=== PATIENT | male | born 1985 | race Caucasian/White ===

== ENCOUNTER 2020-02-11 10:22 | Emergency (ER) | payer BC ==
[~2020-02-11] VITALS: Ht 167.6 cm; Wt 61.0 kg
[2020-02-11 10:47] VITALS: BP 112/74
[2020-02-11] MEDS ORDERED: PRED10TA PO (11:33)
[2020-02-11] MEDS ORDERED: predniSONE 20 mg tablet PO ONE ×3 (11:35→11:40)
[2020-02-11] MEDS ORDERED: prednisone 10mg tablet PO ONE (11:40)
== END 2020-02-11 11:51 | disposition home or self-care (01) ==
LOC: ER 10:22
DX: L23.7 Allergic contact dermatitis due to plants, except food (principal); Z79.899 Other long term (current) drug therapy
CPT/HCPCS: 99283; J7512

== ENCOUNTER 2020-05-23 09:01 | Emergency (ER) | payer BC ==
[~2020-05-23] VITALS: Ht 165.1 cm; Wt 72.7 kg
[~2020-05-23 09:01] MED LIST: PRED10TA PO
[2020-05-23 09:19] VITALS: BP 103/65
== END 2020-05-23 10:35 | disposition home or self-care (01) ==
LOC: ER 09:02
DX: Z03.818 Encounter for observation for suspected exposure to other biological agents ruled out (principal); Z79.899 Other long term (current) drug therapy
CPT/HCPCS: 36415; 99282

== ENCOUNTER 2023-01-03 04:15 | Inpatient (IN) | payer BC ==
[~2023-01-03] VITALS: Ht 165.1 cm; Wt 77.3 kg
[2023-01-03] MEDS ORDERED: ondansetron/PF 4mg/2ml inj IV ONE (04:25)
[2023-01-03] MEDS ORDERED: normal saline 1000ML IV soln IVB ONE ×2 (04:25)
[2023-01-03] MEDS ORDERED: ketorolac trometh. 30mg/ml inj. IV ONE (04:30)
[2023-01-03] MEDS ORDERED: dicyclomine 10mg/ml 2ml ampule IM ONE (04:30)
[2023-01-03] MEDS ORDERED: famotidine/PF 10 mg/ml inj IV ONE (04:30)
[2023-01-03 04:38] LABS: BASOPHILS # (AUTO) 0.1 X10'3 (0-0.2); EOSINOPHILS % (AUTO) 0.3 % (0-6); HEMATOCRIT 50.9 % (42.0-52.0); HEMOGLOBIN 17.5 g/dl (14.0-17.9); LYMPHOCYTES % (AUTO) 15.1 % (21-51); MEAN CORPUSCULAR HEMOGLOBIN 31.7 PG (27.0-31.0); MEAN CORPUSCULAR HGB CONC 34.3 g/dL (33.0-36.5); MEAN CORPUSCULAR VOLUME 92.5 FL (78-98); MEAN PLATELET VOLUME 8.1 FL (7.4-10.4); MONOCYTES # (AUTO) 1.2 X10'3 (0-0.9); MONOCYTES % (AUTO) 9.2 % (2-12); NEUTROPHILS # (AUTO) 9.6 X10'3 (1.8-7.7); NEUTROPHILS % (AUTO) 74.4 % (42-75); PLATELET COUNT 257 X10'3 (140-440); RED CELL DISTRIBUTION WIDTH 13.2 % (11.5-14.5)
[2023-01-03 04:54] LABS: ALANINE AMINOTRANSFERASE 32 U/L (12-78); ALBUMIN 4.8 G/DL (3.4-5.0); ALBUMIN/GLOBULIN RATIO 1.1 (1.1-1.5); ALKALINE PHOSPHATASE 58 IU/L (46-116); ANION GAP 18 (8-16); ASPARTATE AMINO TRANSFERASE 30 U/L (10-37); BILIRUBIN,TOTAL 1.8 MG/DL (0.1-1.0); BLOOD UREA NITROGEN 24 MG/DL (7-18); BUN/CREATININE RATIO 11.5 (10.0-20.0); CALCIUM 9.2 MG/DL (8.5-10.1); CHLORIDE 96 MMOL/L (99-107); CREATININE 2.09 MG/DL (0.60-1.10); GLUCOSE 152 MG/DL (70-104); LIPASE 60 U/L (73-393); POTASSIUM 3.4 MMOL/L (3.5-5.1); SODIUM 136 MMOL/L (135-145); TOTAL CARBON DIOXIDE 22.4 MMOL/L (24-32); eGFR 36 ML/MIN
--- NOTE | 2023-01-03 05:18 | NUR ---
med rec complete - pt states he does not take any at home medications.
--- NOTE | 2023-01-03 07:01 | NUR ---
ATTEMPTED TO INSERT THE NG TUBE AFTER EXPLAINING THE PROCEDURE AND PURPOSE TO THE PT ,PT STATED HE COULDN'T HANDLE IT ,"I DON'T THINK IT CAN PASS THROUGH MY NOSE".NOTIFIED DR VERDIN , PER MD NIETO FOR THE HOSPITALIST .ALSO INFORMED DR VERDIN TO DISCUSS THE REPORT OF CT .
[2023-01-03] MEDS ORDERED: LIDOcaine Viscous 15ml cup MM PRN (07:15)
--- NOTE | 2023-01-03 07:16 | NUR ---
PLACED THE NG TUBE TUBE WHILE MD AT BEDSIDE. VERBAL ORDER RECEVIED FROM MD TO GIVE VISCOUS LIDOCAINE 15 ML PO FOR SORE THROAT .
[2023-01-03] MEDS ORDERED: magnesium 4gm in 100ml NS 100 ML IV PRN (07:30)
[2023-01-03] MEDS ORDERED: potassium Cl 20 mEq SR tablet PO PRN ×2 (07:30)
[2023-01-03] MEDS ORDERED: acetaminophen 325mg tablet PO PRN ×2 (07:30)
[2023-01-03] MEDS ORDERED: HYDROcodone/acetaminophen 5mg/325mg tablet PO PRN (07:30)
[2023-01-03] MEDS ORDERED: HYDROcodone/acetaminophen 10/325mg tab PO PRN (07:30)
[2023-01-03] MEDS ORDERED: ondansetron/PF 4mg/2ml inj IV PRN (07:30)
[2023-01-03] MEDS ORDERED: magnesium 2GM in 50ml NS 50 ML IV PRN (07:30)
[2023-01-03] MEDS ORDERED: morphine 2 MG/ML inj. syringe IV PRN ×2 (07:30)
[2023-01-03] MEDS ORDERED: magnesium hydroxide 30ml (MOM) UD suspension PO PRN (07:30)
[2023-01-03] MEDS ORDERED: magnesium Cl slow-release 64mg tablet PO PRN (07:30)
[2023-01-03] MEDS ORDERED: potassium Cl 40MEQ/1/2NS 520ml 520 ML IV PRN (07:30)
[2023-01-03] MEDS ORDERED: CefTRIAXone 2gm/D5W 50ml BAG 50 ML IV ONE (07:35)
[2023-01-03] MEDS: heparin, porcine 5000 units/ml vial SQ SCH ×3 (08:00→19:35)
[2023-01-03] MEDS ORDERED: normal saline 1000ml 1,000 ML IV ONE (08:05)
[2023-01-03] MEDS ORDERED: LORazepam 2 mg/ml vial IV ONE ×2 (08:05→08:35)
[2023-01-03] MEDS: normal saline 1000ml 1,000 ML IV SCH ×3 (08:34→23:30)
--- NOTE | 2023-01-03 08:40 | NUR ---
PT RECEVIVED TOTAL OF 2MG OF ATIVIAN FOR ANXIETY ,PT WAS MORE RELAXED FOR THE PROCEDURE .
--- NOTE | 2023-01-03 08:57 | NUR ---
ADAVANCE THE NG TUBE 5 CM MORE PER MD ORDERS.
--- NOTE | 2023-01-03 09:36 | NUR ---
DR ORTIZ AT BEDSIDE ,MD CHECKED AND CONFIRMED THE PLACEMENT OF G TUBE WITH 50 CC SYRINGE AIR .EXPLAIN THE POC ALL QUES ANSWERED BY THE MD ,ORDER TO START CLEAR LIQUID DIET AFTER 6 HR IF THERE IS NO GI CONTENT .
--- NOTE | 2023-01-03 10:20 | NUR ---
ATTEMPT TO CALL REPORT ,PRIMARY RN JUD IS BUSY WITH OTHER PT .
[2023-01-03] MEDS ORDERED: NO HOME MEDS (10:39)
[2023-01-03 11:06] VITALS: BP 116/69
--- NOTE | 2023-01-03 17:24 | NUR ---
NG TUBE REMOVED PER MD ORDER
[2023-01-03 18:00] VITALS: BP 109/60
--- NOTE | 2023-01-03 18:00 | NUR ---
Patient in room [facility]TH[facility] 4009. I have received report from CYNTHIA Mota and had the opportunity to ask questions and assume patient care.
[2023-01-03 18:20] LABS: ALANINE AMINOTRANSFERASE 30 U/L (12-78); ALBUMIN 3.8 G/DL (3.4-5.0); ALBUMIN/GLOBULIN RATIO 1.1 (1.1-1.5); ALKALINE PHOSPHATASE 45 IU/L (46-116); ANION GAP 11 (8-16); ASPARTATE AMINO TRANSFERASE 34 U/L (10-37); BLOOD UREA NITROGEN 17 MG/DL (7-18); BUN/CREATININE RATIO 14.4 (10.0-20.0); CALCIUM 7.7 MG/DL (8.5-10.1); CHLORIDE 108 MMOL/L (99-107); CREATININE 1.18 MG/DL (0.60-1.10); GLUCOSE 96 MG/DL (70-104); POTASSIUM 3.3 MMOL/L (3.5-5.1); SODIUM 141 MMOL/L (135-145); TOTAL CARBON DIOXIDE 22.5 MMOL/L (24-32); TOTAL PROTEIN 7.2 G/DL (6.4-8.2); eGFR 70 ML/MIN
--- NOTE | 2023-01-03 18:35 | NUR ---
Problems reprioritized. Patient report given, questions answered & plan of care reviewed with HANNAH MARIE.
[2023-01-03 18:56] LABS: CLARITY,URINE CLEAR (Clear); COLOR,URINE YELLOW (Yellow); GLUCOSE, URINE NEGATIVE (Neg); KETONES,URINE 15 mg/dl (Neg); LEUKOCYTE ESTERASE ,URINE NEGATIVE (Neg); NITRITES, URINE NEGATIVE (Neg); OCCULT BLOOD,URINE TRACE-INTACT (Neg); PH,URINE 5.5 (4.8-8.0); PROTEIN,URINE NEGATIVE (Neg); UROBILINOGEN,URINE 0.2 E.U/dL (0.2-1.0)
[2023-01-03 18:58] LABS: UA COLLECTION TYPE CLN CATCH MIDSTREAM
[2023-01-03 19:16] LABS: BACTERIA,URINE NONE SEEN /HPF (Neg); MUCUS STRANDS FEW /LPF (Neg); RBC,URINE 0-2 /HPF (0-2); SQUAMOUS EPITHELIAL CELL,UR FEW /LPF (FEW); WBC,URINE 0-4 /HPF (0-4)
--- NOTE | 2023-01-03 21:10 | NUR ---
call to md to request ativan per pt request.
[2023-01-03] MEDS ORDERED: LORazepam 1 MG tablet PO PRN (21:15)
[2023-01-03 21:42] VITALS: BP 132/66
[2023-01-04 05:53] LABS: BASOPHILS % (AUTO) 0.7 % (0-1); EOSINOPHILS # (AUTO) 0.2 X10'3 (0-0.9); EOSINOPHILS % (AUTO) 2.9 % (0-6); HEMOGLOBIN 13.3 g/dl (14.0-17.9); LYMPHOCYTES # (AUTO) 1.5 X10'3 (1.1-4.8); MEAN CORPUSCULAR HEMOGLOBIN 31.2 PG (27.0-31.0); MEAN CORPUSCULAR HGB CONC 33.2 g/dL (33.0-36.5); MEAN CORPUSCULAR VOLUME 94.2 FL (78-98); MEAN PLATELET VOLUME 8.4 FL (7.4-10.4); MONOCYTES % (AUTO) 16.5 % (2-12); NEUTROPHILS # (AUTO) 3.2 X10'3 (1.8-7.7); NEUTROPHILS % (AUTO) 53.9 % (42-75); PLATELET COUNT 160 X10'3 (140-440); RED BLOOD COUNT 4.25 X10'6 (4.70-6.10); RED CELL DISTRIBUTION WIDTH 13.1 % (11.5-14.5); WHITE BLOOD COUNT 5.9 X10'3 (4.5-11.0)
[2023-01-04 06:00] VITALS: BP 130/68
[2023-01-04 06:27] LABS: ALANINE AMINOTRANSFERASE 22 U/L (12-78); ALKALINE PHOSPHATASE 35 IU/L (46-116); ANION GAP 10 (8-16); ASPARTATE AMINO TRANSFERASE 27 U/L (10-37); BILIRUBIN,TOTAL 0.8 MG/DL (0.1-1.0); BLOOD UREA NITROGEN 14 MG/DL (7-18); BUN/CREATININE RATIO 13.3 (10.0-20.0); CALCIUM 7.6 MG/DL (8.5-10.1); CHLORIDE 111 MMOL/L (99-107); CREATININE 1.05 MG/DL (0.60-1.10); GLUCOSE 74 MG/DL (70-104); POTASSIUM 3.6 MMOL/L (3.5-5.1); SODIUM 142 MMOL/L (135-145); TOTAL CARBON DIOXIDE 21.5 MMOL/L (24-32); TOTAL PROTEIN 6.1 G/DL (6.4-8.2); eGFR 80 ML/MIN
--- NOTE | 2023-01-04 06:32 | NUR ---
Problems reprioritized. Patient report given, questions answered & plan of care reviewed with CYNTHIA Dykes.
--- NOTE | 2023-01-04 06:37 | NUR ---
Patient in room ORTHO 4009. I have received report from Zo and had the opportunity to ask questions and assume patient care.
[2023-01-04] MEDS: heparin, porcine 5000 units/ml vial SQ SCH (08:00)
[2023-01-04] MEDS: normal saline 1000ml 1,000 ML IV SCH (08:31)
[2023-01-04] MEDS ORDERED: SENN1TAB82 PO (09:51)
[2023-01-04 10:05] VITALS: BP 123/75
--- NOTE | 2023-01-04 10:32 | NUR ---
Reviewed discharge instructions with patient. Patient verbalized understanding. Patient was able to dress himself and walk to the elevator and outside. Patient drove himself here and was anxious to discharge home. Patient stated he felt like his abdominal pain and diarrhea was caused from eating a bad (not fully cooked) burger from a local restaurant. Patient is no longer complaining of pain/discomfort.
[2023-01-04] MEDS ORDERED: CIPR-202 PO (12:14)
== END 2023-01-04 10:32 | disposition home or self-care (01) | DRG 683 ==
LOC: ER 04:16 → ED HOLD 07:32 → ORTHO 4S 11:00
PROVIDERS: ADMIT Internal Medicine; ATTEND Internal Medicine
PROC: 0D9670Z Drainage of Stomach with Drainage Device, Via Natural or Artificial Opening (ICD-10-PCS; principal; 2023-01-03)
DX: N17.9 Acute kidney failure, unspecified (principal); E87.20 Acidosis, unspecified; K56.600 Partial intestinal obstruction, unspecified as to cause; D72.829 Elevated white blood cell count, unspecified; E87.6 Hypokalemia
CPT/HCPCS: 36415; 74018; 74176; 76010; 80053; 81001; 83605; 83690; 84145; 85025; 87040; 87081; 99285; G0378; J0500; J0696; J1644; J1885; J2060; J2405; J3490; J7030